=== PATIENT | female | born 1975 | race Hispanic/Latino ===

== ENCOUNTER 2019-04-20 08:41 | Outpatient (CLI) | payer BC ==
--- NOTE | 2019-04-20 09:39 | MMO ---
Right Breast MAMMO Unilat Diag [facility]. CLINICAL HISTORY: Patient is 44 years old and is seen for additional evaluation requested from prior study. The patient has no family history of breast cancer. The patient has no personal history of cancer. VIEWS: The views performed were: right craniocaudal spot compression with tomosynthesis; right mediolateral oblique spot compression with tomosynthesis; and right mediolateral with tomosynthesis. FILMS COMPARED: The present examination has been compared to prior imaging studies performed at [facility] on 04/08/2019, and at [facility] on 07/17/2016, 07/18/2017 and 04/20/2019. MAMMOGRAM FINDINGS: The breast is heterogeneously dense, which could obscure a lesion on mammography. The focal asymmetry at the inner right breast described at screening mammography does not persist at additional imaging. Focal asymmetry at the 12 oclock position of the right breast persists. Sonography of this region demonstrates simple cysts and dense parenchyma without concerning findings. There are no suspicious masses, suspicious calcifications, or new areas of architectural distortion. IMPRESSION: THERE IS NO MAMMOGRAPHIC EVIDENCE OF MALIGNANCY. A ROUTINE FOLLOW-UP MAMMOGRAM IN 1 YEAR IS RECOMMENDED. THE RESULTS OF THIS EXAM WERE SENT TO THE PATIENT. ACR BI-RADS Category 2 - Benign finding MAMMOGRAPHY NOTE: 1. A negative mammogram report should not delay a biopsy if a dominant of clinically suspicious mass is present. 2. Approximately 10% to 15% of breast cancers are not detected by mammography. 3. Adenosis and dense breasts may obscure an underlying neoplasm. Reported by: ARNULFO NEAL MD Electonically Signed: [id number]
--- NOTE | 2019-04-20 10:17 | ULT ---
LIMITED RIGHT BREAST ULTRASOUND: Date: 04/20/19 PROVIDED CLINICAL HISTORY: Abnormal screening mammogram. FINDINGS: Limited sonographic interrogation of the right breast was performed in the region of mammographic con cern. Multiple simple appearing cysts are seen, largest measuring about 1.0 cm. Somewhat dense tissue is demonstrated at the 12 o'clock position without evidence for focal concerning mass. IMPRESSION: BI-RADS Category 2 - Benign findings. Return to annual screening mammography recommended. POS: OFF
== END 2019-04-20 08:42 | disposition home or self-care (01) ==
LOC: BICMAMMO 08:41
PROVIDERS: ATTEND Obstetrics & Gynecology
DX: N63.10 Unspecified lump in the right breast, unspecified quadrant (principal)
CPT/HCPCS: G0279

== ENCOUNTER 2019-08-26 12:52 | Outpatient (CLI) | payer BC ==
--- NOTE | 2019-08-26 13:57 | CT ---
BONY LESIONS OF THE FOREHEAD: COMPARISON: None. TECHNIQUE: Noncontrast maxillofacial CT is performed in the axial plane. Sagittal and coronal reformatted images are submitted for interpretation. FINDINGS: Visualized brain parenchyma is unremarkable. Bilateral ocular lenses are appropriately located. Both globes are intact. Retrobulbar fat is preserv ed. Symmetric attenuation of the optic nerves and ocular rectus muscles. No evidence of a maxillofacial fracture. Adequate aeration of the visualized paranasal sinuses and mastoid air cells. Minimal mucosal thickeni ng of the left maxillary sinus. Bilateral ostiomeatal complexes are patent. Nasal septum is intact. Mild leftward deviation. Visualized cervical spine is unremarkable. In the anterior right oral cavity there is a calcification of the sublingual space measuring 1.4 x 0. 8 cm. The possibility of a large sialolith is raised. The associated right submandibular gland does not appear to have inflammatory change. The less favored consideration could be a mandibular torus. However, this lesion appears to be separate from the inner margin of the right mandible. There are 2 well-circumscribed calcifications in the frontal scalp. These calcifications are remote f rom the calvarium. The more superior calcification measures 0.4 cm. A slightly more inferior calcification just to left of midline measures 0.5 cm. IMPRESSION: 1. Two distinct calcifications in the frontal scalp. These calcifications are separate from the under lying calvarium. 2. Calcification in the anterior right oral cavity which may represent a large sialolith without asso ciated inflammatory change. A mandibular torus cannot be entirely excluded but is less favored. Transcribed Date/Time: 08/26/2019 2:02 PM
== END 2019-08-26 12:53 | disposition home or self-care (01) ==
LOC: BICCT 12:52
PROVIDERS: ATTEND Plastic Surgery
DX: M89.9 Disorder of bone, unspecified (principal)
CPT/HCPCS: 70486

== ENCOUNTER 2019-09-03 09:57 | Day surgery (SDC) | payer BC ==
[2019-09-02 12:16] VITALS: BMI 23.8
[2019-09-03] MEDS ORDERED: EPINEPHrine 1 MG/ML AMP ONE (10:30)
[2019-09-03] MEDS ORDERED: Bupivacaine 0.25% HCL 30 ML VIAL ONE (10:30)
[2019-09-03] MEDS ORDERED: Midazolam HCl 2 mg/2 ml Vial ONE (10:46)
[2019-09-03] MEDS ORDERED: Fentanyl 100 MCG/2 ML VIAL ONE (10:46)
[2019-09-03] MEDS ORDERED: ePHEDrine/0.9% NaCl/PF SYRINGE 50 mg/10 ml ONE (11:13)
[2019-09-03] MEDS ORDERED: PROPOFOL 200 MG/20 ML VIAL ONE (11:13)
[2019-09-03] MEDS ORDERED: Ondansetron PF 4 MG/2 ML Vial ONE (11:13)
--- NOTE | 2019-09-03 17:27 | OP ---
DATE OF PROCEDURE: 09/03/2019 PREOPERATIVE DIAGNOSIS: Bony forehead lesions x2 - superior and central. POSTOPERATIVE DIAGNOSIS: Bony forehead lesions x2 - superior and central. PROCEDURE PERFORMED: Excision of bony lesions of forehead x2 - superior and central. DESCRIPTION OF PROCEDURE: Following induction of adequate anesthesia, the patient was prepped and draped in usual sterile fashion in supine position. A transverse incision was made over the central forehead bony lesion. Dissection was carried sharply down to the periosteum, which was then elevated off the exophytic lesion. The lesion was sharply removed with osteotomes serially until it was smooth. The field was copiously irrigated and inspected for meticulous hemostasis prior to closure in layers using interrupted and running 4-0 Monocryl suture. Attention was turned to the superior bony forehead lesion. A similar procedure was done. The patient tolerated the procedure well. Job ID: [id number]
== END 2019-09-03 14:50 | disposition home or self-care (01) ==
LOC: SDC 09:57
PROVIDERS: ATTEND Plastic Surgery
PROC: 0NB Head and Facial Bones, Excision (ICD-10-PCS; principal; 2019-09-03)
DX: M89.9 Disorder of bone, unspecified (principal); F41.9 Anxiety disorder, unspecified; Z79.899 Other long term (current) drug therapy
CPT/HCPCS: 88307; 88311; J0171; J0690; J2250; J2405; J2704; J3010; S0020

== ENCOUNTER 2020-04-13 09:05 | Outpatient (CLI) | payer BC ==
--- NOTE | 2020-04-13 09:41 | MMO ---
Bilateral MAMMO Bilat Screen [facility]. CLINICAL HISTORY: Patient is 45 years old and is seen for screening. The patient has no family history of breast cancer. The patient has no personal history of cancer. VIEWS: The views performed were: bilateral craniocaudal with tomosynthesis and bilateral mediolateral oblique with tomosynthesis. FILMS COMPARED: The present examination has been compared to prior imaging studies performed at [facility] on 04/08/2019, and at [facility] on 07/18/2017 and 04/20/2019. This study has been interpreted with the assistance of computer-aided detection. MAMMOGRAM FINDINGS: The breasts are heterogeneously dense, which could obscure a lesion on mammography. There are benign appearing calcifications in the right breast. There are no suspicious masses, suspicious calcifications, or new areas of architectural distortion. IMPRESSION: THERE IS NO MAMMOGRAPHIC EVIDENCE OF MALIGNANCY. A ROUTINE FOLLOW-UP MAMMOGRAM IN 1 YEAR IS RECOMMENDED. THE RESULTS OF THIS EXAM WERE SENT TO THE PATIENT. ACR BI-RADS Category 2 - Benign finding MAMMOGRAPHY NOTE: 1. A negative mammogram report should not delay a biopsy if a dominant of clinically suspicious mass is present. 2. Approximately 10% to 15% of breast cancers are not detected by mammography. 3. Adenosis and dense breasts may obscure an underlying neoplasm. Reported by: OSBALDO LIPSCOMB MD Electonically Signed: [id number]
== END 2020-04-13 09:06 | disposition home or self-care (01) ==
LOC: BICMAMMO 09:05
PROVIDERS: ATTEND Obstetrics & Gynecology
DX: Z12.31 Encounter for screening mammogram for malignant neoplasm of breast (principal)
CPT/HCPCS: 77063; 77067